=== PATIENT | male | born 1955 | race Caucasian/White ===

== ENCOUNTER 2016-01-29 14:34 | Outpatient (RCR) | payer OTHER ==
[~2016-01-29 14:34] MED LIST: ACYC800T PO; CIPR-225 PO; FLUO40CA PO; FURO20TA4 PO; GABA-488 PO; HYDR-3820 PO; HYDR-3857 PO; HYDR28CR10 TP; LD2JL30 EXT; PRED20TA PO; VICODIN 5-325 MG TAB PO
--- OUTSIDE RECORDS SUMMARY | 2016-01-29 14:37 | XMS REPORT | Continuity of Care Document ---
Author Author [facility] Organization [facility] Address Unknown Phone Unavailable Care Team Providers Care Hand Rug Cleaner Name Role Phone RENATA NICOLE Chiara CONTRERAS PCP Insurance Providers Payer Name Policy Number Subscriber Name Relationship Self Pay Fin Director [employer] Review [id number] Hilario Del Real 19 Self / Same As Patient Advance Directives Directive Response Recorded Date/Time Advance Directives No 11/24/14 10:10am Organ Donor No 11/24/14 10:10am Resuscitation Status Full Code 11/24/14 10:10am Problems Medical Problems Problem Onset Date Status Fever Unknown Active Medications Medication Dose Route Sig Days/Qty Instructions Order Date Discontinued Date Status Acyclovir 800 Mg PO EVERY 4HRS 09/11/14 Active Furosemide (Lasix) 1 Each PO DAILY 09/11/14 Active Fluoxetine HCl (Prozac) 1 Each PO DAILY 09/11/14 Active Hydrocortisone/Oatmeal/Aloe/E 28.4 Gm TP NEEDED For Rash 09/11/14 Active Lidocaine Hcl 30 Ml EXT TWICE A DAY 09/11/14 Active Prednisone 3 Tab PO DAILY 09/11/14 09/13/14 Discontinued Hydrocodone Bit/Acetaminophen 5 Each PO EVERY 4HRS PRN PAIN DOSE IS 5/ 325MG 09/11/14 Active [Vicodin 5-325 Mg Tab] 1-2 Tab PO Q4-6 PRN PAIN 30 Qty 09/13/14 Active Ciprofloxacin HCl 500 Mg PO TWICE A DAY 14 Qty 11/24/14 Active Social History Social History Problem Response Recorded Date/Time Alcohol Use Denies Use 11/24/2014 10:10am Recreational Drug Use No 11/24/2014 10:10am Recent Foreign Travel No 11/24/2014 10:10am Recent Infectious Disease Exposure No 11/24/2014 10:10am Hospitalization with Isolation Denies 11/24/2014 10:10am Sexually Transmitted Disease No 11/24/2014 10:10am HIV/AIDS No 11/24/2014 10:10am Smoking Status Never a Smoker 11/24/2014 10:10am Query Response Start Date Stop Date Smoking Status Never a Smoker Hospital Discharge Instructions No hospital discharge instructions. Plan of Care No plan of care. Functional Status No functional status results. Allergies, Adverse Reactions, Alerts Allergen Type Severity Reaction Status Last Updated No Known Drug Allergies Active 09/12/14 Immunizations No immunization records. Vital Signs Acute Vital Signs Vital Response Date/Time Temperature (Fahrenheit) 97.5 degrees F (97.6 - 99.5) Temperature (Calculated Celsius) 36.87766 degrees C (36.4 - 37.5) Pulse Rate (adult) 92 bpm (60 - 90) Respiratory Rate 20 bpm (12 - 24) O2 Sat by Pulse Oximetry 93 % (88 - 100) Blood Pressure 145/100 mm Hg Blood Pressure Mean 115 mm Hg Pain Pain Intensity 3 Height (Feet) 5 feet Height (Inches) 10 inches Height (Calculated Centimeters) 177.005475 cm Weight (Pounds) 330 pounds Weight (Calculated Kilograms) 149.894530 kilograms Calculated BMI 47.34 Results Laboratory Results Test Name Result Units Flags Reference Collection Date/Time Result Date/ Time Comments White Blood Count 124.8 10^3/uL CH 4.3-11.0 11/11/2014 9:03am 11/11/2014 10:06am RESULTS GIVEN TO RN AT 09:20. LJJ Red Blood Count 3.48 10^6/uL L 4.35-5.85 11/11/2014 9:03am 11/11/2014 10: 06am Hemoglobin 10.5 G/DL L 13.3-17.7 11/11/2014 9:03am 11/11/2014 10:06am Hematocrit 34 % L 40-54 11/11/2014 9:03am 11/11/2014 10:06am Mean Corpuscular Volume 97 FL 80-99 11/11/2014 9:03am 11/11/2014 10: 06am Mean Corpuscular Hemoglobin 30 PG 25-34 11/11/2014 9:03am 11/11/2014 10 :06am Mean Corpuscular Hemoglobin Concent 31 G/DL L 32-36 11/11/2014 9:03am 10:06am Red Cell Distribution Width 16.1 % H 10.0-14.5 11/11/2014 9:03am 2014 10:06am Platelet Count 109 10^3/uL L 130-400 11/11/2014 9:03am 11/11/2014 10: 06am Mean Platelet Volume 8.7 FL 7.4-10.4 11/11/2014 9:03am 11/11/2014 10: 06am Neutrophils (%) (Auto) 1 % L 42-75 09/19/2014 12:54pm 09/19/2014 5:07pm Lymphocytes (%) (Auto) 94 % H 12-44 09/19/2014 12:54pm 09/19/2014 5:07pm Monocytes (%) (Auto) 4 % 0-12 09/19/2014 12:54pm 09/19/2014 5:07pm Eosinophils (%) (Auto) 0 % 0-10 09/19/2014 12:54pm 09/19/2014 5:07pm Basophils (%) (Auto) 1 % 0-10 09/19/2014 12:54pm 09/19/2014 5:07pm Neutrophils # (Auto) 1.9 X 10^3 1.8-7.8 09/19/2014 12:54pm 09/19/2014 5 :07pm Lymphocytes # (Auto) 254.3 X 10^3 H 1.0-4.0 09/19/2014 12:54pm 2014 5:07pm Monocytes # (Auto) 10.9 X 10^3 H 0.0-1.0 09/19/2014 12:54pm 09/19/2014 5: 07pm Eosinophils # (Auto) 0.1 10^3/uL 0.0-0.3 09/19/2014 12:54pm 09/19/2014 5:07pm Basophils # (Auto) 2.4 10^3/uL H 0.0-0.1 09/19/2014 12:54pm 09/19/2014 5: 07pm Absolute Reticulocyte Count 41 10e9/L 24-90 10/03/2014 1:25pm 2014 1:48pm Percent Reticulocyte Count 1.09 % 0.50-2.40 10/03/2014 1:25pm 2014 1:48pm Sodium Level 140 MMOL/L 135-145 11/11/2014 9:03am 11/11/2014 9:44am Potassium Level 4.6 MMOL/L 3.6-5.0 11/11/2014 9:03am 11/11/2014 9:44am Chloride Level 105 MMOL/L 98-107 11/11/2014 9:03am 11/11/2014 9:44am Carbon Dioxide Level 28 MMOL/L 21-32 11/11/2014 9:03am 11/11/2014 9: 44am Anion Gap 7 MMOL/L 5-14 11/11/2014 9:03am 11/11/2014 9:44am Blood Urea Nitrogen 17 MG/DL 7-18 11/11/2014 9:03am 11/11/2014 9:44am Creatinine 0.95 MG/DL 0.60-1.30 11/11/2014 9:03am 11/11/2014 9:44am BUN/Creatinine Ratio 18 11/11/2014 9:03am 11/11/2014 9:44am Estimat Glomerular Filtration Rate > 60 11/11/2014 9:03am 2014 9:44am GFR INTERPRETIVE DATA UNITS FOR ESTIMATED GFR (eGFR): mL/min/1.73 M2 REFERENCE RANGE FOR ESTIMATED GFR (eGFR) eGFR NORMAL eGFR >60 MODERATELY DECREASED eGFR 30-59 SEVERLY DECREASED eGFR 15-29 KIDNEY FAILURE <15 (OR DIALYSIS) Glucose Level 147 MG/DL H 70-105 11/11/2014 9:03am 11/11/2014 9:44am Uric Acid 5.4 MG/DL 2.6-7.2 10/03/2014 1:25pm 10/03/2014 2:06pm Calcium Level 8.9 MG/DL 8.5-10.1 11/11/2014 9:03am 11/11/2014 9:44am Total Bilirubin 0.5 MG/DL 0.1-1.0 11/11/2014 9:0311/11/2014 9:44am Alkaline Phosphatase 61 U/L 40-136 11/11/2014 9:03am 11/11/2014 9:44am Aspartate Amino Transf (AST/SGOT) 20 U/L 5-34 11/11/2014 9:032014 9:44am Alanine Aminotransferase (ALT/SGPT) 17 U/L 0-55 11/11/2014 9:0311/11 9:44am Lactate Dehydrogenase 286 U/L H 125-220 11/11/2014 9:0311/11/2014 9: 44am Total Protein 6.4 G/DL 6.4-8.2 11/11/2014 9:03am 11/11/2014 9:44am Albumin 3.9 G/DL 3.2-4.5 11/11/2014 9:0311/11/2014 9:44am Ikkq-3-Ssjsniqrjxosu 3.96 H MG/L 0.00-1.85 09/19/2014 12:54pm 2014 8:36am Immunoglobulin G 904 MG/DL 672-1680 09/19/2014 12:54pm 09/23/2014 8: 36am Immunoglobulin A 59 L MG/DL 71-263 09/19/2014 12:54pm 09/23/2014 8: 36am Immunoglobulin M 19 L MG/DL 47-209 09/19/2014 12:54pm 09/23/2014 8: 36am Immunofixation Pathologist [id number] 09/19/2014 12:54pm 09/23/2014 8 :36am Total Protein (PEP) 6.5 GM/DL 6.5-8.2 09/19/2014 12:54pm 09/20/2014 6: 44am Protein Electrophoresis Pathologist SEE PATH REPORT 09/19/2014 12: 54pm 09/20/2014 6:44am Protein Electrophoresis Note [id number] 09/19/2014 12:54pm 2014 8:36am Free [place] Light Chains, Quant 123.68 H MG/L 3.30-19.40 09/19/2014 12: 54pm 09/23/2014 8:36am Free [place]ambda Light Chains, Quant 16.62 MG/L 5.71-26.30 09/19/2014 12: 54pm 09/23/2014 8:36am Free [place]/Lambda Light Chain Ratio 7.44 H RATIO 0.26-1.65 09/19/2014 12:54pm 09/23/2014 8:36am Flow Cytometry Pathologist Review [id number] 09/19/2014 12:54pm 8:36am White Blood Count 15.3 10^3/uL H 4.3-11.0 11/24/2014 10:35am 11/24/2014 11:01am Red Blood Count 3.61 10^6/uL L 4.35-5.85 11/24/2014 10:35am 11/24/2014 11 :01am Hemoglobin 11.2 G/DL L 13.3-17.7 11/24/2014 10:35am 11/24/2014 11:01am Hematocrit 34 % L 40-54 11/24/2014 10:35am 11/24/2014 11:01am Mean Corpuscular Volume 93 FL 80-99 11/24/2014 10:35am 11/24/2014 11: 01am Mean Corpuscular Hemoglobin 31 PG 25-34 11/24/2014 10:35am 11/24/2014 11:01am Mean Corpuscular Hemoglobin Concent 33 G/DL 32-36 11/24/2014 10:35am 11:01am Red Cell Distribution Width 15.5 % H 10.0-14.5 11/24/2014 10:35am 2014 11:01am Platelet Count 104 10^3/uL L 130-400 11/24/2014 10:35am 11/24/2014 11: 01am Mean Platelet Volume 8.9 FL 7.4-10.4 11/24/2014 10:35am 11/24/2014 11: 01am Neutrophils (%) (Auto) 13 % L 42-75 11/24/2014 10:35am 11/24/2014 11: 01am Lymphocytes (%) (Auto) 85 % H 12-44 11/24/2014 10:35am 11/24/2014 11: 01am Monocytes (%) (Auto) 2 % 0-12 11/24/2014 10:35am 11/24/2014 11:01am Eosinophils (%) (Auto) 0 % 0-10 11/24/2014 10:35am 11/24/2014 11:01am Basophils (%) (Auto) 0 % 0-10 11/24/2014 10:35am 11/24/2014 11:01am Neutrophils # (Auto) 2.0 X 10^3 1.8-7.8 11/24/2014 10:35am 11/24/2014 11:01am Lymphocytes # (Auto) 12.9 X 10^3 H 1.0-4.0 11/24/2014 10:35am 11/24/2014 11:01am Monocytes # (Auto) 0.3 X 10^3 0.0-1.0 11/24/2014 10:35am 11/24/2014 11: 01am Eosinophils # (Auto) 0.0 10^3/uL 0.0-0.3 11/24/2014 10:35am 11/24/2014 11:01am Basophils # (Auto) 0.0 10^3/uL 0.0-0.1 11/24/2014 10:35am 11/24/2014 11 :01am Neutrophils % (Manual) 13 % 11/24/2014 10:35am 11/24/2014 11:38am Lymphocytes % (Manual) 82 % 11/24/2014 10:35am 11/24/2014 11:38am Monocytes % (Manual) 4 % 11/24/2014 10:35am 11/24/2014 11:38am Blood Morphology Comment NORMAL 11/24/2014 10:35am 11/24/2014 11: 38am Urine Color YELLOW 11/24/2014 11:50am 11/24/2014 12:12pm Urine Clarity CLEAR 11/24/2014 11:50am 11/24/2014 12:12pm Urine pH 7 5-9 11/24/2014 11:50am 11/24/2014 12:12pm Urine Specific [place] 1.010 * 1.016-1.022 11/24/2014 11:50am 2014 12:12pm Urine Protein NEGATIVE NEGATIVE 11/24/2014 11:50am 11/24/2014 12: 12pm Urine Glucose (UA) NEGATIVE NEGATIVE 11/24/2014 11:50am 11/24/2014 12 :12pm Urine RBC (Auto) NEGATIVE NEGATIVE 11/24/2014 11:50am 11/24/2014 12: 12pm Urine Ketones NEGATIVE NEGATIVE 11/24/2014 11:50am 11/24/2014 12: 12pm Urine Nitrite NEGATIVE NEGATIVE 11/24/2014 11:50am 11/24/2014 12: 12pm Urine Bilirubin NEGATIVE NEGATIVE 11/24/2014 11:50am 11/24/2014 12: 12pm Urine Urobilinogen NORMAL MG/DL NORMAL 11/24/2014 11:50am 11/24/2014 12 :12pm Urine Leukocyte Esterase 1+ * NEGATIVE 11/24/2014 11:50am 11/24/2014 12 :12pm Urine RBC NONE /HPF 11/24/2014 11:50am 11/24/2014 12:12pm Urine WBC RARE /HPF 11/24/2014 11:50am 11/24/2014 12:12pm Urine Bacteria TRACE /HPF 11/24/2014 11:50am 11/24/2014 12:12pm Urine Crystals NONE /LPF 11/24/2014 11:50am 11/24/2014 12:12pm Urine Casts NONE /LPF 11/24/2014 11:50am 11/24/2014 12:12pm Urine Mucus NEGATIVE /LPF 11/24/2014 11:50am 11/24/2014 12:12pm Urine Culture Indicated NO 11/24/2014 11:50am 11/24/2014 12:12pm Sodium Level 141 MMOL/L 135-145 11/24/2014 10:35am 11/24/2014 11:18am Potassium Level 3.9 MMOL/L 3.6-5.0 11/24/2014 10:35am 11/24/2014 11: 18am Chloride Level 106 MMOL/L 98-107 11/24/2014 10:35am 11/24/2014 11:18am Carbon Dioxide Level 26 MMOL/L 21-32 11/24/2014 10:35am 11/24/2014 11: 18am Anion Gap 9 MMOL/L 5-14 11/24/2014 10:35am 11/24/2014 11:18am Blood Urea Nitrogen 12 MG/DL 7-18 11/24/2014 10:35am 11/24/2014 11: 18am Creatinine 0.75 MG/DL 0.60-1.30 11/24/2014 10:35am 11/24/2014 11:18am BUN/Creatinine Ratio 16 11/24/2014 10:35am 11/24/2014 11:18am Estimat Glomerular Filtration Rate > 60 11/24/2014 10:35am 2014 11:18am GFR INTERPRETIVE DATA UNITS FOR ESTIMATED GFR (eGFR): mL/min/1.73 M2 REFERENCE RANGE FOR ESTIMATED GFR (eGFR) eGFR NORMAL eGFR >60 MODERATELY DECREASED eGFR 30-59 SEVERLY DECREASED eGFR 15-29 KIDNEY FAILURE <15 (OR DIALYSIS) Glucose Level 104 MG/DL 70-105 11/24/2014 10:35am 11/24/2014 11:18am Calcium Level 8.9 MG/DL 8.5-10.1 11/24/2014 10:35am 11/24/2014 11:18am Total Bilirubin 1.1 MG/DL H 0.1-1.0 11/24/2014 10:35am 11/24/2014 11: 18am Alkaline Phosphatase 45 U/L 40-136 11/24/2014 10:35am 11/24/2014 11: 18am Aspartate Amino Transf (AST/SGOT) 11 U/L 5-34 11/24/2014 10:35am 2014 11:18am Alanine Aminotransferase (ALT/SGPT) 20 U/L 0-55 11/24/2014 10:35am 12/2014 11:18am Total Protein 6.0 G/DL L 6.4-8.2 11/24/2014 10:35am 11/24/2014 11:18am Albumin 3.8 G/DL 3.2-4.5 11/24/2014 10:35am 11/24/2014 11:18am Procedures No known history of procedures. Encounters Encounter Location Date/Time Departed Emergency Room [facility] 11/24/14 10:08am Registered Recurring Via [facility] 11/12/14 12:50pm Recent Diagnosis
== END 2016-04-28 | disposition home or self-care (01) ==
LOC: ONC 14:34
PROVIDERS: ATTEND Internal Medicine Hematology & Oncology
DX: C91.10 Chronic lymphocytic leukemia of B-cell type not having achieved remission (principal); B02.29 Other postherpetic nervous system involvement; I10 Essential (primary) hypertension; E66.01 Morbid (severe) obesity due to excess calories; Z68.43 Body mass index [BMI] 50.0-59.9, adult
CPT/HCPCS: 99213

== ENCOUNTER 2016-07-22 15:11 | Outpatient (RCR) | payer OTHER ==
--- OUTSIDE RECORDS SUMMARY | 2016-04-29 15:15 | XMS REPORT | Continuity of Care Document ---
Author Author [facility] Organization [facility] Address Unknown Phone Unavailable Care Team Providers Care Salon Manager Name Role Phone RENATA NICOLE Chiara CONTRERAS PCP Insurance Providers Payer Name Policy Number Subscriber Name Relationship Self Pay Fin [employer] Review [id number] Hilario Del Real 19 Self / Same [...] F (97.6 - 99.5) Temperature (Calculated Celsius) 36.28095 degrees C (36.4 - 37.5) Pulse Rate (adult) 92 bpm (60 - 90) Respiratory Rate 20 bpm (12 - 24) O2 Sat by Pulse Oximetry 93 % (88 - 100) Blood Pressure 145/100 mm Hg Blood Pressure Mean 115 mm Hg Pain Pain Intensity 3 Height (Feet) 5 feet Height (Inches) 10 inches Height (Calculated Centimeters) 177.011722 cm Weight (Pounds) 330 pounds Weight (Calculated Kilograms) 149.550315 kilograms Calculated BMI 47.34 Results Laboratory Results [...] Albumin 3.9 G/DL 3.2-4.5 11/11/2014 9:0311/11/2014 9:44am Agdv-5-Vcmrgxyqtrnlk 3.96 H MG/L 0.00-1.85 09/19/2014 12:54pm 2014 8:36am Immunoglobulin G 904 MG/DL 672-1680 09/19/2014 12:54pm 09/23/2014 8: 36am Immunoglobulin A 59 L MG/DL 71-263 09/19/2014 12:54pm 09/23/2014 8: 36am Immunoglobulin M 19 L MG/DL 47-209 09/19/2014 12:54pm 09/23/2014 8: 36am Immunofixation Pathologist [id number] 09/19/2014 12:54pm 09/23/2014 8 :36am Total Protein (PEP) 6.5 GM/DL 6.5-8.2 09/19/2014 12:54pm 09/20/2014 6: 44am Protein Electrophoresis Pathologist SEE PATH REPORT 09/19/2014 12: 54pm 09/20/2014 6:44am Protein Electrophoresis Note [id number] 09/19/2014 12:54pm 2014 8:36am Free [place] Light Chains, Quant 123.68 H MG/L 3.30-19.40 09/19/2014 12: 54pm 09/23/2014 8:36am Free [place]ambda Light Chains, Quant 16.62 MG/L 5.71-26.30 09/19/2014 12: 54pm 09/23/2014 8:36am Free [place]/Lambda Light Chain Ratio 7.44 H RATIO 0.26-1.65 09/19/2014 12:54pm 09/23/2014 8:36am Flow Cytometry Pathologist Review [id number] 09/19/2014 12:54pm 8:36am White Blood Count 15.3 [...] 5-9 11/24/2014 11:50am 11/24/2014 12:12pm Urine Specific [place] 1.010 * 1.016-1.022 11/24/2014 11:50am 2014 12:12pm [...] Encounter Location Date/Time Departed Emergency Room Via [facility] 11/24/14 10:08am Registered Recurring [facility] 11/12/14 12:50pm Recent Diagnosis
== END 2016-07-28 | disposition home or self-care (01) ==
LOC: ONC 15:11
PROVIDERS: ATTEND Internal Medicine Hematology & Oncology
DX: C91.10 Chronic lymphocytic leukemia of B-cell type not having achieved remission (principal); B02.29 Other postherpetic nervous system involvement; I10 Essential (primary) hypertension; E66.01 Morbid (severe) obesity due to excess calories; Z68.43 Body mass index [BMI] 50.0-59.9, adult
CPT/HCPCS: 99213

== ENCOUNTER 2016-11-10 13:23 | Outpatient (RCR) | payer OTHER ==
[~2016-11-10 13:23] MED LIST changes: +ACETAMINOPHEN 500 MG TAB (TYLENOL) CANCER CTR PO SCH; +IVIG IV SCH; +diphenhydrAMINE 25 MG TAB (BENADRYL) CANCER CENTER PO SCH
== END 2016-11-15 | disposition home or self-care (01) ==
LOC: ONC 13:23
PROVIDERS: ATTEND Internal Medicine Hematology & Oncology
DX: C91.10 Chronic lymphocytic leukemia of B-cell type not having achieved remission (principal); B02.29 Other postherpetic nervous system involvement; I10 Essential (primary) hypertension; E66.01 Morbid (severe) obesity due to excess calories; Z68.43 Body mass index [BMI] 50.0-59.9, adult; Z79.899 Other long term (current) drug therapy
CPT/HCPCS: 96365; 96366; 99213

== ENCOUNTER 2017-01-03 12:39 | Outpatient (RCR) | payer OTHER | END 2017-01-15 | disposition home or self-care (01) | LOC: ONC 12:39 | PROVIDERS: ATTEND Internal Medicine Hematology & Oncology | DX: C91.10 Chronic lymphocytic leukemia of B-cell type not having achieved remission (principal); B02.29 Other postherpetic nervous system involvement; I10 Essential (primary) hypertension; E66.01 Morbid (severe) obesity due to excess calories; Z68.43 Body mass index [BMI] 50.0-59.9, adult; Z79.899 Other long term (current) drug therapy | CPT/HCPCS: 96365; 96366 ==

== ENCOUNTER 2017-03-28 11:00 | Outpatient (RCR) | payer OTHER ==
[~2017-03-28 11:00] MED LIST changes: +IMMUNE GLOBULIN IV SCH; +MALTOSE IV SCH
== END 2017-05-01 | disposition home or self-care (01) ==
LOC: ONC 11:00
PROVIDERS: ATTEND Internal Medicine Hematology & Oncology
DX: C91.10 Chronic lymphocytic leukemia of B-cell type not having achieved remission (principal); B02.29 Other postherpetic nervous system involvement; I10 Essential (primary) hypertension; E66.01 Morbid (severe) obesity due to excess calories; Z68.43 Body mass index [BMI] 50.0-59.9, adult; Z79.899 Other long term (current) drug therapy
CPT/HCPCS: 36591; 96365; 96366